=== PATIENT | female | born 1955 | race Caucasian/White ===

== ENCOUNTER → 2017-04-16 | Outpatient (CLI) | payer BC | LOC: MAMMO 15:01 | DX: Z12.31 Encounter for screening mammogram for malignant neoplasm of breast (principal) | CPT/HCPCS: G0202 ==

== ENCOUNTER 2017-07-12 10:30 | Outpatient (RCR) | payer BC | END 2017-07-12 11:00 | disposition home or self-care (01) | LOC: PT 10:30 | DX: M25.551 Pain in right hip (principal) ==

== ENCOUNTER → 2018-07-16 | Outpatient (CLI) | payer BC | LOC: MAMMO 15:15 | DX: Z12.31 Encounter for screening mammogram for malignant neoplasm of breast (principal) ==

== ENCOUNTER 2019-11-30 13:12 | Emergency (ER) | payer BC ==
[2019-11-30 13:43] LABS: HEMATOCRIT 39.4 % (37.0-47.0); HEMOGLOBIN 12.8 g/dL (12.5-16.0); MEAN CELL VOLUME 97 fl (78-100); MEAN CORPUSCULAR HEMOGLOBIN 31 pg (27-31); MEAN CORPUSCULAR HGB CONC 33 g/dL (33-37); MEAN PLATELET VOLUME 10.9 fl (7.4-10.4); PLATELET COUNT 195 K/mm3 (130-400); RED BLOOD COUNT 4.08 M/mm3 (4.10-5.30); RED CELL DISTRIBUTION WIDTH 12.7 % (11.5-14.5); WHITE BLOOD COUNT 17.1 K/mm3 (4.8-10.8)
[2019-11-30 13:50] LABS: ALBUMIN 3.7 g/dL (3.4-4.8)
[2019-11-30 13:52] LABS: CALCIUM 9.4 mg/dL (8.3-10.5)
[2019-11-30 13:53] LABS: TOTAL PROTEIN 7.4 g/dL (6.2-8.1)
[2019-11-30 13:55] LABS: TOTAL BILIRUBIN 0.6 mg/dL (0.2-1.2)
[2019-11-30 14:00] LABS: BAND 5 % (0-10); LYMPHOCYTE 2 % (20-51); MONOCYTE 2 % (3-10); NEUTROPHILS 91 % (42-75)
[2019-11-30 14:15] LABS: URINE APPEARANCE CLOUDY; URINE BILIRUBIN NEGATIVE (NEGATIVE); URINE BLOOD 250 ery/uL (NEGATIVE); URINE COLOR YELLOW; URINE GLUCOSE NEGATIVE (NEGATIVE); URINE KETONE NEGATIVE (NEGATIVE); URINE LEUKOCYTE ESTERASE 1+ (NEGATIVE); URINE NITRATE NEGATIVE (NEGATIVE); URINE PROTEIN(semi-quant) 3+ mg/dL (NEGATIVE); URINE UROBILINOGEN NORMAL (NORMAL)
[2019-11-30 14:16] LABS: URINE WBC >50 /hpf (0-3)
[2019-11-30] MEDS ORDERED: ROSUVASTATIN CA40 MG PO (14:19)
[2019-11-30] MEDS ORDERED: LOSARTAN POTASS50 M1 PO (14:19)
[2019-11-30] MEDS ORDERED: CARDENE 20MG CA20 M1 PO (14:19)
[2019-11-30] MEDS ORDERED: THEOPHYLLINE400 M1 PO (14:19)
[2019-11-30] MEDS ORDERED: POTASSIUM CHLO20 ME4 PO (14:20)
[2019-11-30] MEDS ORDERED: PANTOPRAZOLE SO40 MG PO (14:20)
[2019-11-30] MEDS ORDERED: LOPRESSOR 550 MG/TAB PO (14:20)
[2019-11-30 16:59] VITALS: BP 133/90
== END 2019-11-30 16:20 | disposition short-term general hospital (02) ==
LOC: ED 13:12
PROVIDERS: Nurse Practitioner
DX: N12 Tubulo-interstitial nephritis, not specified as acute or chronic (principal); A41.9 Sepsis, unspecified organism; N17.9 Acute kidney failure, unspecified; I10 Essential (primary) hypertension; J44.9 Chronic obstructive pulmonary disease, unspecified; Z90.710 Acquired absence of both cervix and uterus; Z90.49 Acquired absence of other specified parts of digestive tract; Z88.0 Allergy status to penicillin
CPT/HCPCS: J0696; J2405; J7030

== ENCOUNTER → 2022-10-11 | Outpatient (CLI) | payer BC ==
[~2022-10-11] MED LIST: CARDENE 20MG CA20 M1 PO; LOPRESSOR 550 MG/TAB PO; LOSARTAN POTASS50 M1 PO; PANTOPRAZOLE SO40 MG PO; POTASSIUM CHLO20 ME4 PO; ROSUVASTATIN CA40 MG PO; THEOPHYLLINE400 M1 PO
== END ==
LOC: MAMMO 12:15
DX: N64.4 Mastodynia (principal)

== ENCOUNTER 2024-07-07 04:02 | Emergency (ER) | payer BC ==
[~2024-07-07] VITALS: Ht 167.6 cm; Wt 90.0 kg
[2024-07-07 04:47] LABS: BASO # 0.02 K/mm3 (0.02-0.10); EOS # 0.06 K/mm3 (0.04-0.40); EOS % 0.7 % (1.0-5.0); HEMATOCRIT 39.6 % (37.0-47.0); HEMOGLOBIN 12.7 g/dL (12.5-16.0); LYMPH# 0.95 K/mm3 (1.50-4.00); MEAN CELL VOLUME 99 fl (78-100); MEAN CORPUSCULAR HEMOGLOBIN 32 pg (27-31); MEAN CORPUSCULAR HGB CONC 32 g/dL (33-37); MEAN PLATELET VOLUME 10.7 fl (7.4-10.4); MONO # 0.68 K/mm3 (0.20-0.80); NEU # 7.05 K/mm3 (1.40-6.50); PLATELET COUNT 167 K/mm3 (130-400); RED BLOOD COUNT 3.99 M/mm3 (4.10-5.30); RED CELL DISTRIBUTION WIDTH 13.1 % (11.5-14.5); WHITE BLOOD COUNT 8.8 K/mm3 (4.8-10.8)
[2024-07-07 05:19] LABS: ALBUMIN 3.8 g/dL (3.4-4.8)
[2024-07-07 05:20] LABS: URINE APPEARANCE TURBID (CLEAR); URINE COLOR BROWN (YELLOW)
[2024-07-07 05:20] LABS: CALCIUM 9.7 mg/dL (8.3-10.5)
[2024-07-07 05:21] LABS: TOTAL PROTEIN 6.4 g/dL (6.2-8.1)
[2024-07-07 05:21] LABS: URINE BILIRUBIN 1+ (NEGATIVE); URINE BLOOD 3+ (NEGATIVE); URINE GLUCOSE NEGATIVE (NEGATIVE); URINE KETONE NEGATIVE (NEGATIVE); URINE LEUKOCYTE ESTERASE 3+ (NEGATIVE); URINE NITRATE POSITIVE (NEGATIVE); URINE PROTEIN(semi-quant) 3+ (NEGATIVE); URINE WBC >50 /hpf (0-3)
[2024-07-07 05:23] LABS: TOTAL BILIRUBIN 0.4 mg/dL (0.2-1.2)
[2024-07-07] MEDS ORDERED: CEPHALEXIN500 M2 PO (05:44)
[2024-07-07] MEDS ORDERED: cefTRIAXone 1 G in Water For Injection,Sterile 10 ML IV ONE (05:45)
[2024-07-07 07:13] VITALS: BP 175/91
== END 2024-07-07 07:38 | disposition home or self-care (01) ==
LOC: ED 04:02
PROVIDERS: Nurse Practitioner Family
DX: N39.0 Urinary tract infection, site not specified (principal); R31.9 Hematuria, unspecified; Z88.0 Allergy status to penicillin
CPT/HCPCS: J0696; J7120